=== PATIENT | female | born 1945 ===

== ENCOUNTER 2018-06-02 09:59 | Outpatient (CLI) | payer OTHER ==
[~2018-06-02 09:59] MED LIST: SYNTHROID50 MCG
== END 2018-06-02 17:00 | disposition home or self-care (01) ==
LOC: MRI 09:59
DX: M25.561 Pain in right knee (principal); M25.562 Pain in left knee
CPT/HCPCS: 73721

== ENCOUNTER 2020-12-10 10:42 | Outpatient (CLI) | payer OTHER | END 2020-12-10 11:00 | disposition home or self-care (01) | LOC: MAMO-SONO 10:42 | PROVIDERS: ATTEND Internal Medicine Cardiovascular Disease | DX: N64.59 Other signs and symptoms in breast (principal); Z12.31 Encounter for screening mammogram for malignant neoplasm of breast ==

== ENCOUNTER 2020-12-24 12:02 | Outpatient (CLI) | payer OTHER | END 2020-12-24 12:05 | disposition home or self-care (01) | LOC: NUCLEAR 12:02 | PROVIDERS: ATTEND Internal Medicine Cardiovascular Disease | DX: M81.0 Age-related osteoporosis without current pathological fracture (principal); E55.9 Vitamin D deficiency, unspecified ==

== ENCOUNTER 2022-02-09 09:29 | Outpatient (CLI) | payer OTHER | END 2022-02-09 09:34 | disposition home or self-care (01) | LOC: MAMO-SONO 09:29 | PROVIDERS: ATTEND Internal Medicine Cardiovascular Disease | DX: N63.11 Unspecified lump in the right breast, upper outer quadrant (principal) ==

== ENCOUNTER 2023-03-23 10:26 | Outpatient (CLI) | payer OTHER | END 2023-03-23 10:36 | disposition home or self-care (01) | LOC: MAMO-SONO 10:26 | PROVIDERS: ATTEND Internal Medicine Cardiovascular Disease | DX: Z12.31 Encounter for screening mammogram for malignant neoplasm of breast (principal); N60.11 Diffuse cystic mastopathy of right breast; N60.12 Diffuse cystic mastopathy of left breast ==

== ENCOUNTER 2023-11-11 07:14 | Outpatient (CLI) | payer OTHER | END 2023-11-11 07:23 | disposition home or self-care (01) | LOC: NUCLEAR 07:14 | PROVIDERS: ATTEND Internal Medicine Cardiovascular Disease | DX: G45.9 Transient cerebral ischemic attack, unspecified (principal); I10 Essential (primary) hypertension ==

== ENCOUNTER 2024-02-08 07:37 | Outpatient (CLI) | payer OTHER | END 2024-02-08 07:39 | disposition home or self-care (01) | LOC: NUCLEAR 07:37 | PROVIDERS: ATTEND Internal Medicine | DX: I36.1 Nonrheumatic tricuspid (valve) insufficiency (principal); I34.0 Nonrheumatic mitral (valve) insufficiency; I27.0 Primary pulmonary hypertension ==

== ENCOUNTER 2024-05-24 08:25 | Outpatient (CLI) | payer OTHER | END 2024-05-24 08:29 | disposition home or self-care (01) | LOC: MAMO-SONO 08:25 | PROVIDERS: ATTEND Internal Medicine Cardiovascular Disease | DX: N60.11 Diffuse cystic mastopathy of right breast (principal); N60.12 Diffuse cystic mastopathy of left breast; Z12.31 Encounter for screening mammogram for malignant neoplasm of breast ==